=== PATIENT | male | born 1985 | race Caucasian/White ===

== ENCOUNTER 2019-10-13 07:46 | Day surgery (SDC) | payer OTHER ==
[~2019-10-13 07:46] MED LIST: Bupivacaine 0.5% 30 ML SDV ONE; Lactated Ringers 1,000 ML IV SCH; Lidocaine 2% 5 ML SDV ONE; Midazolam 1 MG/ML 2 ML SDV ONE; Propofol 200 MG/20 ML SDV ONE; fentaNYL 100 MCG/2 ML SDV ONE
[2019-10-13] MEDS ORDERED: Sodium Chloride 0.9% 2.5 ML Syringe FLUSH PRN (09:02)
[2019-10-13] MEDS ORDERED: cefOXitin 2 GM in Premix Bag 1 BAG IV ONE (09:02)
[2019-10-13] MEDS ORDERED: Sodium Chloride 0.9% 10 ML Syringe FLUSH PRN (09:02)
[2019-10-13] MEDS ORDERED: Sodium Chloride 0.9% 10 ML SDV IV PRN (09:02)
[2019-10-13] MEDS ORDERED: Glycopyrrolate 0.2 MG/ML SDV ONE ×2 (09:04→09:14)
[2019-10-13] MEDS ORDERED: Sodium Chloride 0.9% 20 ML ONE (09:06)
[2019-10-13] MEDS ORDERED: cefOXitin 1 GM Vial ONE (09:06)
[2019-10-13] MEDS ORDERED: ePHEDrine 50 MG/ML SDV ONE (09:10)
[2019-10-13] MEDS ORDERED: Propofol 200 MG/20 ML SDV ONE (09:15)
[2019-10-13] MEDS ORDERED: fentaNYL 250 MCG/5 ML SDV ONE (09:20)
[2019-10-13] MEDS ORDERED: fentaNYL 100 MCG/2 ML SDV ONE (09:20)
--- NOTE | 2019-10-13 09:27 | PCM.PREANE ---
Preanesthetic Assessment - Anesthesia/Transfusion/Family Hx Anesthesia History: No Prior Anesthesia Family History of Anesthesia Reaction: No Transfusion History: No Prior Transfusion(s) Intubation History: Unknown - Review of Systems General: No Symptoms Pulmonary: No Symptoms Cardiovascular: No Symptoms Gastrointestinal: No Symptoms Neurological: No Symptoms Other: Reports: None - Physical Assessment Vital Signs: Last Vital Signs Temp 37.2 C 10/13/19 08:16 Pulse 70 10/13/19 08:16 Resp 16 10/13/19 08:16 BP 116/72 10/13/19 08:16 Pulse Ox 95 10/13/19 08:16 Height: 6 ft 1 in Weight: 80.286 kg ASA Class: 1 Mental Status: Alert & Oriented x3 Airway Class: Mallampati = 1 Dentition: Reports: Normal Dentition Thyro-Mental Finger Breadths: 3 Mouth Opening Finger Breadths: 3 ROM/Head Extension: Full Lungs: Clear to Auscultation, Normal Respiratory Effort Cardiovascular: Regular Rate, Regular Rhythm - Allergies Allergies/Adverse Reactions: Allergies Allergy/AdvReac Type Severity Reaction Status Date / Time No Known Allergies Allergy Verified 10/13/19 08:14 - Blood Blood Available: No - Anesthesia Plan Pre-Op Medication Ordered: None - Acknowledgements Anesthesia Type Planned: General Anesthesia Pt an Appropriate Candidate for the Planned Anesthesia: Yes Alternatives and Risks of Anesthesia Discussed w Pt/Guardian: Yes Pt/Guardian Understands and Agrees with Anesthesia Plan: Yes PreAnesthesia Questionnaire Gastrointestinal History: Reports: None (perianal abscess, hemorrhoides) Musculoskeletal History: Reports: Fracture Other Musculoskeletal History: hx of fx scaphoid - Past Surgical History Head Surgeries/Procedures: Reports: None - SUBSTANCE USE Smoking Status *Q: Never Smoker Recreational Drug Use History: No - HOME MEDS Home Medications: Home Meds . [No Known Home Meds] 10/10/19 [History] - CURRENT (IN HOUSE) MEDS Current Meds: Current Medications Lactated Ringer's (Ringers, Lactated) 1,000 mls @ 125 mls/hr IV ASDIRECTED JOSH Last Admin: 10/13/19 08:15 Dose: 125 mls/hr Documented by: Cefoxitin Sodium 2 gm/ Premix 50 mls @ 100 mls/hr IV ONETIME ONE Stop: 10/13/19 09:31 Sodium Chloride (Saline Flush) 10 ml FLUSH ASDIRECTED PRN PRN Reason: Keep Vein Open Sodium Chloride (Saline Flush) 2.5 ml FLUSH ASDIRECTED PRN PRN Reason: Keep Vein Open Sodium Chloride (Normal Saline) 10 ml IV ASDIRECTED PRN PRN Reason: IV Use Discontinued Medications Bupivacaine HCl (Marcaine 0.5%) Confirm Administered Dose 30 ml .ROUTE .STK-MED ONE Stop: 10/13/19 07:24 Cefoxitin Sodium (Mefoxin) Confirm Administered Dose 2 gm .ROUTE .STK-MED ONE Stop: 10/13/19 09:07 Ephedrine Sulfate (Ephedrine Sulfate) Confirm Administered Dose 50 mg .ROUTE .STK-MED ONE Stop: 10/13/19 09:11 Fentanyl (Sublimaze) Confirm Administered Dose 100 mcg .ROUTE .STK-MED ONE Stop: 10/13/19 07:08 Fentanyl (Sublimaze) Confirm Administered Dose 250 mcg .ROUTE .STK-MED ONE Stop: 10/13/19 09:21 Fentanyl (Sublimaze) Confirm Administered Dose 100 mcg .ROUTE .STK-MED ONE Stop: 10/13/19 09:21 Glycopyrrolate (Robinul) Confirm Administered Dose 0.2 mg .ROUTE .STK-MED ONE Stop: 10/13/19 09:05 Glycopyrrolate (Robinul) Confirm Administered Dose 0.2 mg .ROUTE .STK-MED ONE Stop: 10/13/19 09:15 Sodium Chloride (Normal Saline) Confirm Administered Dose 20 mls @ as directed .ROUTE .STK-MED ONE Stop: 10/13/19 09:07 Lidocaine (Xylocaine-Mpf 2%) Confirm Administered Dose 5 ml .ROUTE .STK-MED ONE Stop: 10/13/19 07:08 Midazolam HCl (Versed 1 Mg/Ml) Confirm Administered Dose 2 mg .ROUTE .STK-MED ONE Stop: 10/13/19 07:08 Propofol (Diprivan 20 Ml) Confirm Administered Dose 400 mg .ROUTE .STK-MED ONE Stop: 10/13/19 07:08 Propofol (Diprivan 20 Ml) Confirm Administered Dose 200 mg .ROUTE .STK-MED ONE Stop: 10/13/19 09:16
--- NOTE | 2019-10-13 13:23 | PCM.POSTAN ---
POST ANESTHESIA ASSESSMENT - MENTAL STATUS Mental Status: Alert, Oriented - VITAL SIGNS Vital Signs: Last Vital Signs Temp 36.7 C 10/13/19 10:20 Pulse 71 10/13/19 10:35 Resp 15 10/13/19 10:35 BP 116/65 10/13/19 10:35 Pulse Ox 96 10/13/19 10:35 - RESPIRATORY Respiratory Status: Respiratory Rate WNL, Airway Patent, O2 Saturation Stable - CARDIOVASCULAR CV Status: Pulse Rate WNL, Blood Pressure Stable - GASTROINTESTINAL GI Status: No Symptoms - PAIN Pain Score: 0 - POST OP HYDRATION Hydration Status: Adequate & Stable - OBSERVATIONS Free Text/Narrative:: No anesthesia problems
--- NOTE | 2019-10-13 13:24 | PCM48HPAN ---
Post Anesthesia Note - EVALUATION WITHIN 48HRS OF ANESTHETIC Vital Signs in Normal Range: Yes Patient Participated in Evaluation: Yes Respiratory Function Stable: Yes Airway Patent: Yes Cardiovascular Function Stable: Yes Hydration Status Stable: Yes Pain Control Satisfactory: Yes Nausea and Vomiting Control Satisfactory: Yes Mental Status Recovered: Yes Vital Signs: Last Vital Signs Temp 36.7 C 10/13/19 10:20 Pulse 71 10/13/19 10:35 Resp 15 10/13/19 10:35 BP 116/65 10/13/19 10:35 Pulse Ox 96 10/13/19 10:35 - COMMENTS/OBSERVATIONS Free Text/Narrative:: No anesthesia problems
--- NOTE | 2019-10-15 20:26 | PCM.OPNOTE ---
- General Post-Op/Procedure Note Date of Surgery/Procedure: 10/13/19 Operative Procedure(s): Exam under anesthesia, incision and drainage right lateral perianal abscess Findings: Perianal abscess located on the right lateral anoderm tracking to the posterior midline. Pre Op Diagnosis: Perianal abscess Post-Op Diagnosis: perianal abscess Anesthesia Technique: General LMA Primary Surgeon: Willow Escalante Fluid Replacement, Intraop: 900 Condition: Good
--- NOTE | 2019-10-15 21:15 | OR ---
SURGEON: WILLOW ESCALANTE MD DATE OF PROCEDURE: 10/13/2019 PREOPERATIVE DIAGNOSIS: Perianal abscess. POSTOPERATIVE DIAGNOSIS: Right lateral perianal abscess. PROCEDURE PERFORMED: Exam under anesthesia, incision and drainage right lateral perianal abscess. PRIMARY SURGEON: Willow Escalante MD. ANESTHESIA: General LMA. FLUIDS: 900 mL of crystalloid. ESTIMATED BLOOD LOSS: 5 mL. FINDINGS: Right lateral perianal abscess tracking to the posterior midline. COMPLICATIONS: None. INDICATIONS: The patient is a 34-year-old male who presented to my clinic with 3 weeks worth of perianal pain, swelling, warmth, and drainage. On exam, the patient appeared to have a perianal abscess with a chronically draining area on the right lateral anoderm. The decision was made to perform an exam under anesthesia to drain this abscess and to determine if the patient had a fistula. I explained the procedure, expected perioperative course, as well as a possible fistulotomy or seton placement if there was a perianal fistula as well as the risks. He verbalized understanding and wishes to proceed. PROCEDURE IN DETAIL: The patient was brought into the OR and placed on the OR cart in a left lateral decubitus position. A time-out was completed verifying the patient's name, age, date of , allergies, and procedure to be performed. General LMA anesthesia was induced. The buttocks and anoderm were then prepped and draped in usual standard fashion. To begin the case, I performed a digital rectal exam. Upon palpation, I felt a small area along the posterior midline. This was approximately 1 to 2 mm in size. On examination of the anoderm, again, the patient was noted to have a fluctuant area along the right lateral anoderm with a chronically draining sinus. I anesthetized the area around the anoderm circumferentially with 0.5% Marcaine plain. I then made a 1.5 cm incision over the top of the chronically draining wound. The patient was noted to have an abscess cavity underneath this. There was serosanguineous fluid in the area, but no ge purulent material. Using a fistula probe, I explored the wound cavity. It appeared to track to the posterior midline. A bivalve proctoscope was placed into the anal canal. The anal mucosa all appeared normal. I did not see a large fistula. Using the fistula probe, I tried to determine if the small area of nodularity was a perianal fistula. I could not identify an opening. The wound was then filled with hydrogen peroxide, and I closely inspected the posterior midline, but there was no expression of any bubbles or hydrogen peroxide that I could see. The decision was made to not attempt any further exploration of the area. The wound was irrigated with normal saline until it ran clear. It was then packed with half-inch iodoform gauze. 4 x 4 fluffs were then placed over the area and mesh underwear were used to secure the dressings in place. The patient was then placed in a supine position and extubated. All counts were complete and correct at the end of the case. The patient was transferred to the PACU in stable condition. JUDY MCKNIGHT /[id number]
== END 2019-10-13 11:06 | disposition home or self-care (01) ==
LOC: MW.SDS 07:46
PROVIDERS: ATTEND Surgery
DX: K61.0 Anal abscess (principal); Z87.19 Personal history of other diseases of the digestive system
CPT/HCPCS: 46050; J0694; J2001; J2250; J2704; J3010; J3490; J7120